=== PATIENT | female | born 1995 | race Caucasian/White ===

== ENCOUNTER → 2017-04-08 | Outpatient (CLI) | payer BC | END | disposition home or self-care (01) | LOC: LAB.O 17:39 | PROVIDERS: ATTEND Obstetrics & Gynecology | DX: O20.0 Threatened abortion (principal) ==

== ENCOUNTER 2017-04-10 01:36 | Emergency (ER) | payer BC ==
[2017-04-10] MEDS ORDERED: SODIUM CHLORIDE 0.9% 1000ML 1,000 ML IVS ONE (02:00)
--- NOTE | 2017-04-10 02:02 | ED.PDOC ---
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 Timing/Duration: 1-3 hours Severity: moderate Improving Factors: nothing Worsening Factors: nothing Associated Symptoms: other - see hpi Allergies/Adverse Reactions: Allergies Peanut-containing Drug Products Allergy (Verified 04/10/17 01:51) Home Medications: Ambulatory Orders Citalopram Hydrobromide [CeleXA] 20 mg PO DAILY 02/07/16 Amphetamine-Dextroamphetamine [Adderall 15 mg] 15 mg PO DAILY 04/10/17 Vit W/ Ferrous Fumara [] 1 tablet PO DAILY 04/10/17 Review of Systems - Review of Systems Constitutional: States: no symptoms reported EENTM: States: no symptoms reported Respiratory: States: no symptoms reported Cardiology: States: no symptoms reported Gastrointestinal/Abdominal: States: no symptoms reported Genitourinary: States: no symptoms reported Musculoskeletal: States: no symptoms reported Skin: States: no symptoms reported Neurological: States: see HPI, other - dizzy Endocrine: States: no symptoms reported Past Medical History (General) - Patient Medical History Hx Seizures: No Hx Stroke: No Hx Dementia: No Hx Asthma: No Hx of COPD: No Hx Cardiac Disorders: No Hx Congestive Heart Failure: No Hx Pacemaker: No Hx Hypertension: No Hx Thyroid Disease: No Hx Diabetes: Yes Hx Gastroesophageal Reflux: No Hx Renal Disease: No Hx Cancer: No Hx of HIV: No Hx Hepatitis C: No Hx MRSA: No Surgical History: tonsillectomy - Vaccination History Hx Tetanus, Diphtheria Vaccination: Yes Hx Influenza Vaccination: Yes Hx Pneumococcal Vaccination: No Immunizations Up to Date: Yes - Social History Hx Tobacco Use: No Hx Alcohol Use: No - Female History Patient is a Female of Child Bearing Age (10 -59 yrs old): Yes Hx Last Menstrual Period: 02/14/17 Patient : Yes Hx Gestational Age: 7 - weeks Family Medical History - Family History Mother Family History: Unknown Living Status: Still Living Hx Family Diabetes: Yes - dad Hx Family;Other: MOM-Crohns disease;Dad-hemachcromatosis, Physical Exam - Physical Exam General Appearance: Alert, No apparent distress Eye Exam: bilateral normal Ears, Nose, Throat: hearing grossly normal, normal ENT inspection, normal pharynx Neck: non-tender, supple Respiratory: lungs clear, normal breath sounds Cardiovascular/Chest: normal peripheral pulses, regular rate, rhythm, no murmur Gastrointestinal/Abdominal: normal bowel sounds, non tender, soft, no organomegaly Back Exam: no CVA tenderness, no vertebral tenderness Extremity: non-tender, no pedal edema, no calf tenderness Neurologic: no motor/sensory deficits, alert, oriented x 3 Skin Exam: normal color, warm/dry Lymphatic: no adenopathy Progress - Progress Progress: 04/10/17 02:12 Vital Signs 04/10/17 01:52 Temperature 98.5 F Pulse Rate [ 120 H Left Radial] Respiratory 20 Rate Blood Pressure 132/88 [Left Arm] O2 Sat by Pulse 99 Oximetry - Results/Orders Results/Orders: Laboratory Tests 04/10/17 04/10/17 04/10/17 02:10 02:10 02:10 WBC 11.7 H RBC 4.23 Hgb 12.8 Hct 38.6 MCV 91.4 MCH 30.3 MCHC 33.2 RDW 14.2 Plt Count 111 L MPV 11.8 H Absolute Neuts (auto) 7.50 H Absolute Lymphs (auto) 3.20 Absolute Monos (auto) 0.70 Absolute Eos (auto) 0.20 Absolute Basos (auto) 0.10 Neutrophils % 64.3 Lymphocytes % 27.6 Monocytes % 6.0 Eosinophils % 1.6 Basophils % 0.5 Normal RBC Morphology 1+giant platelets Sodium 137 Potassium 3.0 L Chloride 104 Carbon Dioxide 26 Anion Gap 10.0 L BUN 7 Creatinine 0.62 BUN/Creatinine Ratio 11.3 Random Glucose 83 Serum Osmolality 270.9 L Calcium 9.4 Total Bilirubin 0.3 AST 31 ALT 35 Alkaline Phosphatase 48 L Serum Total Protein 7.4 Albumin 4.1 Globulin 3.3 Albumin/Globulin Ratio 1.2 Lipase 37 Beta HCG, Quant 5176.0 H Urine Color Yellow Urine Appearance Clear Urine pH 6.5 Ur Specific [place] 1.015 Urine Protein Negative Urine Glucose (UA) Negative Urine Ketones Negative Urine Blood Negative Urine Nitrite Negative Urine Bilirubin Negative Urine Urobilinogen 1.0 Ur Leukocyte Esterase Negative Urine RBC 0 Urine WBC 0 Ur Epithelial Cells 0-1 Urine Bacteria Rare Departure - Departure Clinical Impression: Dizziness, with 7 completed weeks gestation Time of Disposition: 03:39 Disposition: Discharge to Home or Self Care Condition: Fair Departure Forms: ED Discharge - Pt. Copy, Patient Portal Self Enrollment Instructions: Human Chorionic Gonadotropin, Managing Symptoms of , Medications and , Common Discomforts and Bodily Changes During , DI for -- Discomforts and Remedies Referrals: Christo Burns III, MD [Primary Care Provider] - 1-2 Weeks Home Medications: Ambulatory Orders Citalopram Hydrobromide [CeleXA] 20 mg PO DAILY 02/07/16 Amphetamine-Dextroamphetamine [Adderall 15 mg] 15 mg PO DAILY 04/10/17 Vit W/ Ferrous Fumara [] 1 tablet PO DAILY 04/10/17 Additional Instructions: NEED TO CALL UP [facility] during office hours 05/2017 patient to call
[2017-04-10] MEDS ORDERED: diphenhydrAMINE HCL 25 MG CAP PO ONE (03:41)
[2017-04-10 03:57] VITALS: BP 106/73; TEMP 98.2; O2SAT 98
== END 2017-04-10 03:56 | disposition home or self-care (01) ==
LOC: ER 01:36
DX: O26.891 Other specified pregnancy related conditions, first trimester (principal); R42 Dizziness and giddiness; O24.911 Unspecified diabetes mellitus in pregnancy, first trimester; Z3A.01 Less than 8 weeks gestation of pregnancy; Z91.010 Allergy to peanuts
CPT/HCPCS: 36415; 80053; 81001; 83690; 84702; 85025; J7030; Q0163

== ENCOUNTER → 2017-04-15 | Outpatient (CLI) | payer BC | END | disposition home or self-care (01) | LOC: LAB.O 09:24 | PROVIDERS: ATTEND Obstetrics & Gynecology | DX: O20.0 Threatened abortion (principal) ==

== ENCOUNTER → 2017-04-17 | Outpatient (CLI) | payer BC | END | disposition home or self-care (01) | LOC: LAB.O 12:55 | PROVIDERS: ATTEND Obstetrics & Gynecology | DX: O20.0 Threatened abortion (principal) ==

== ENCOUNTER → 2017-04-19 | Outpatient (CLI) | payer BC | LOC: LAB.O 13:11 | PROVIDERS: ATTEND Obstetrics & Gynecology | DX: O00.90 Unspecified ectopic pregnancy without intrauterine pregnancy (principal) ==

== ENCOUNTER → 2017-04-27 | Outpatient (CLI) | payer BC | END | disposition home or self-care (01) | LOC: LAB.NP 23:16 | DX: O20.0 Threatened abortion (principal) ==

== ENCOUNTER 2018-01-11 21:19 | Emergency (ER) | payer BC, MEDICAID ==
[2018-01-11] MEDS ORDERED: methylPREDNISolone SODIUM SUC 125 MG/2 ML VIAL ONE (21:22)
[2018-01-11] MEDS ORDERED: EPINEPHrine HCL AMP 1 MG/ML AMP ONE (21:22)
[2018-01-11] MEDS ORDERED: EPINEPHrine HCL AMP 1 MG/ML AMP IM ONE (21:44)
[2018-01-11] MEDS ORDERED: methylPREDNISolone SODIUM SUC 125 MG/2 ML VIAL IV ONE (21:46)
[2018-01-11 21:55] VITALS: O2SAT 97
--- NOTE | 2018-01-11 22:21 | ED.PDOC ---
History of Present Illness - General Chief Complaint: Allergic Reaction Stated Complaint: hioves and itching all over body Time Seen by Provider: 01/11/18 22:14 Source: patient Exam Limitations: no limitations - History of Present Illness Initial Comments: kasie Sal 22 y/o female stated while at the [facility] [facility] got bitten by bugs 2 x on her foot left then on her thights which made her got SOB and was itching.She was then brought to ER.Took Benadryl on way here to er. Timing/Duration: 1 hour Severity: moderate Improving Factors: nothing Worsening Factors: other - see hpi Associated Symptoms: shortness of breath Allergies/Adverse Reactions: Allergies Peanut-containing Drug Products Allergy (Verified 04/10/17 01:51) Home Medications: Ambulatory Orders Citalopram Hydrobromide [CeleXA] 20 mg PO DAILY 02/07/16 Amphetamine-Dextroamphetamine [Adderall 15 mg] 15 mg PO DAILY 04/10/17 Vit W/ Ferrous Fumara [] 1 tablet PO DAILY 04/10/17 Epinephrine [Epipen 2-Jonnie] 0.3 mg IM PRN PRN #1 ml 01/11/18 predniSONE 20 mg PO DAILY 3 Days #3 tab 01/11/18 Review of Systems - Review of Systems Constitutional: States: no symptoms reported EENTM: States: no symptoms reported Respiratory: States: see HPI Cardiology: States: no symptoms reported Gastrointestinal/Abdominal: States: no symptoms reported Genitourinary: States: no symptoms reported Musculoskeletal: States: no symptoms reported Skin: States: see HPI, rash Neurological: States: no symptoms reported All other Systems: Reviewed and Negative, No Change from Baseline Past Medical History (General) - Patient Medical History Hx Seizures: No Hx Stroke: No Hx Dementia: No Hx Asthma: No Hx of COPD: No Hx Cardiac Disorders: No Hx Congestive Heart Failure: No Hx Pacemaker: No Hx Hypertension: No Hx Thyroid Disease: No Hx Diabetes: Yes Hx Gastroesophageal Reflux: No Hx Renal Disease: No Hx Cancer: No Hx of HIV: No Hx Hepatitis C: No Hx MRSA: No Surgical History: tonsillectomy - Vaccination History Hx Tetanus, Diphtheria Vaccination: Yes Hx Influenza Vaccination: Yes Hx Pneumococcal Vaccination: No - Social History Hx Tobacco Use: No Hx Alcohol Use: No - Female History Hx Last Menstrual Period: 12/30/17 Patient : No - Triage Comment ED Triage Comment: raised hives over neck chest and abd. Urticaria also. Pt also has whelp to back of left thigh Family Medical History - Family History Mother Family History: Unknown Living Status: Still Living Hx Family Diabetes: Yes - dad Hx Family;Other: MOM-Crohns disease;Dad-hemachcromatosis, Physical Exam - Physical Exam General Appearance: Alert, Comfortable, No apparent distress Eye Exam: bilateral normal Ears, Nose, Throat: normal ENT inspection, normal pharynx Neck: non-tender, supple, normal inspection Respiratory: lungs clear, normal breath sounds, no respiratory distress Cardiovascular/Chest: regular rate, rhythm, no murmur Gastrointestinal/Abdominal: non tender, soft, no organomegaly Back Exam: no CVA tenderness, no vertebral tenderness Extremity: non-tender, no pedal edema, no calf tenderness Neurologic: alert, oriented x 3 Skin Exam: rash - back ,chest and left thigh Progress - Progress Progress: 01/11/18 22:26 Vital Signs - 8 hr 01/11/18 21:35 Temperature 99.4 F Pulse Rate [ 116 H left] Respiratory 20 Rate Blood Pressure 145/44 [left] O2 Sat by Pulse 97 Oximetry She was given Epineprine 0.3 cc im on arrivaql at er and solu-medrol 125 mg. iv 01/11/18 22:27 feeling better no longer SOB Departure - Departure Clinical Impression: Bug bites Qualifiers: Encounter type: initial encounter Qualified Code(s): W57.XXXA - Bitten or stung by nonvenomous insect and other nonvenomous arthropods, initial encounter Allergic reaction to insect sting Qualifiers: Encounter type: initial encounter Injury intent: accidental or unintentional Qualified Code(s): T63.481A - Toxic effect of venom of other arthropod, accidental (unintentional), initial encounter Time of Disposition: 22:29 Disposition: Discharge to Home or Self Care Condition: Fair Departure Forms: ED Discharge - Pt. Copy, Patient Portal Self Enrollment Referrals: Christo Burns III, MD [Primary Care Provider] - 1-2 Weeks Prescriptions: Epinephrine [Epipen 2-Jonnie] 0.3 mg IM PRN PRN #1 ml PRN Reason: Allergies predniSONE 20 mg PO DAILY 3 Days #3 tab Home Medications: Ambulatory Orders Citalopram Hydrobromide [CeleXA] 20 mg PO DAILY 02/07/16 Amphetamine-Dextroamphetamine [Adderall 15 mg] 15 mg PO DAILY 04/10/17 Vit W/ Ferrous Fumara [] 1 tablet PO DAILY 04/10/17 Epinephrine [Epipen 2-Jonnie] 0.3 mg IM PRN PRN #1 ml 01/11/18 predniSONE 20 mg PO DAILY 3 Days #3 tab 01/11/18 Additional Instructions: Return to ER as Needed
[2018-01-11 22:45] VITALS: BP 116/60; TEMP 98.8
== END 2018-01-11 22:44 | disposition home or self-care (01) ==
LOC: ER 21:19
DX: T63.481A Toxic effect of venom of other arthropod, accidental (unintentional), initial encounter (principal); R06.02 Shortness of breath; E11.9 Type 2 diabetes mellitus without complications; Y92.828 Other wilderness area as the place of occurrence of the external cause

== ENCOUNTER → 2018-10-20 | Outpatient (CLI) | payer BC, MEDICAID | LOC: LAB.O 11:45 | PROVIDERS: ATTEND Obstetrics & Gynecology | DX: L65.9 Nonscarring hair loss, unspecified (principal); N89.8 Other specified noninflammatory disorders of vagina; R53.83 Other fatigue ==